=== PATIENT | female | born 1955 | race Caucasian/White ===

== ENCOUNTER 2023-05-11 12:41 | Emergency (ER) | payer OTHER, BC ==
[2023-05-11 12:51] VITALS: BP 126/87; PULSE 96; RESP 16; TEMP 98.1; BMI 28.1
[2023-05-11] MEDS ORDERED: ACETAMINOPHEN 325 MG TABLET (FP) PO ONE (12:54)
[2023-05-11] MEDS ORDERED: ACETAMINOPHEN 325 MG TABLET (FP) ONE (12:58)
== END 2023-05-11 14:08 | disposition home or self-care (01) ==
LOC: FER 12:41
DX: S00.83XA Contusion of other part of head, initial encounter (principal); R51.9 Headache, unspecified; W13.2XXA Fall from, out of or through roof, initial encounter
CPT/HCPCS: 70450-TC; 99284-25

== ENCOUNTER 2023-11-22 16:37 | Emergency (ER) | payer OTHER, BC ==
[2023-11-22 16:43] VITALS: BP 123/63; PULSE 75; RESP 18; TEMP 98.7; BMI 26.9
[2023-11-22] MEDS ORDERED: SODIUM CHLORIDE 0.9% 500 ML INFUS.BAG IV ONE (18:00)
[2023-11-22] MEDS ORDERED: ONDANSETRON 4 MG/2 ML VIAL IVPUSH ONE (18:01)
[2023-11-22] MEDS ORDERED: ONDANSETRON 4 MG/2 ML VIAL ONE (18:58)
[2023-11-22 19:22] LABS: BASO % 0.3 % (0-2.0); HEMATOCRIT 38.7 % (32.4-45.2); HEMOGLOBIN 12.7 GM/dL (10.7-15.3); LYMPH % 2.3 % (8-40); MCHC 32.8 g/dl (32.0-36.0); MEAN CELL VOLUME 85.5 fl (80-96); MEAN PLT VOLUME 9.5 fl (7.5-11.1); MONO % 5.2 % (3.8-10.2); NEUT % 92.2 % (42.8-82.8); PLATELET COUNT 324 10^3/uL (134-434); RBC 4.53 M/mm3 (3.60-5.2); RDW 14.6 % (11.6-15.6); WHITE BLOOD COUNT 16.8 K/mm3 (4.0-10.0)
[2023-11-22 19:25] LABS: EPI CELLS 28 /uL (0-25.1); HYALINE CASTS 4 /uL (0-3.1); URINE APPEARANCE CLEAR; URINE BACTERIA 119 /uL (0-1359); URINE BILIRUBIN 1+ (NEGATIVE); URINE COLOR DK YELLOW; URINE GLUCOSE (UA) NEGATIVE (NEGATIVE); URINE KETONE 2+ (NEGATIVE); URINE LEUK ESTERASE TRACE (NEGATIVE); URINE NITRITE NEGATIVE (NEGATIVE); URINE PROTEIN 1+ (NEGATIVE); URINE WBC 62 /uL (0-25.8)
[2023-11-22 19:40] LABS: POTASSIUM 4.2 mmol/L (3.5-5.1)
[2023-11-22 19:42] LABS: CALCIUM 9.8 mg/dL (8.5-10.1)
[2023-11-22 19:43] LABS: ALBUMIN 3.7 g/dl (3.4-5.0); BLOOD UREA NITROGEN 12.1 mg/dL (7-18)
[2023-11-22 19:46] LABS: CREATININE 1.2 mg/dL (0.55-1.3)
[2023-11-22 19:47] LABS: TOT PROT 7.1 g/dl (6.4-8.2)
[2023-11-22 20:57] LABS: OVALOCYTE 1+
[2023-11-22 20:59] LABS: PLATELET ESTIMATE ADEQUATE
[2023-11-22] MEDS ORDERED: AMOX TR/POT CLAV 875MG/125MG TABLETS (FP) PO ONE (21:21)
[2023-11-22] MEDS ORDERED: AMOX TR/POT CLAV 875MG/125MG TABLETS (FP) ONE (21:42)
== END 2023-11-22 21:58 | disposition home or self-care (01) ==
LOC: JER 16:37
PROC: 3E033NZ Introduction of Analgesics, Hypnotics, Sedatives into Peripheral Vein, Percutaneous Approach (ICD-10-PCS; principal; 2023-11-22)
DX: R10.9 Unspecified abdominal pain (principal); R11.2 Nausea with vomiting, unspecified; K52.9 Noninfective gastroenteritis and colitis, unspecified; Z20.822 Contact with and (suspected) exposure to COVID-19
CPT/HCPCS: 0241U-QW; 36415; 71045-TC-FY; 74176-TC; 80053; 81003; 83605; 83690; 84484; 85025; 93005; 93010; 99285-25